=== PATIENT | female | born 1995 | race Hispanic/Latino ===

== ENCOUNTER 2017-05-09 21:11 | Emergency (ER) | payer BC ==
[2017-05-09 21:11] VITALS: BMI 22.6
[2017-05-09] MEDS ORDERED: Sodium Chloride 0.9% 1,000 ML IV ONE (21:26)
--- NOTE | 2017-05-09 21:26 | C.PDOC ---
History Of Present Illness A 21 y/o female who is 16 weeks , c/o vaginal bleeding and cramping for the last hour. Pain is dull, aching and is 4/10 in discomfort. Patient has had an endometriosis in the past. Denies fever, chills, chest pain, SOB, weakness, headache, dizziness, dysuria, or any other complaints. Time Seen by Provider: 05/09/17 21:25 Chief Complaint (Nursing): Female Genitourinary History Per: Patient History/Exam Limitations: no limitations Onset/Duration Of Symptoms: Hrs Current Symptoms Are (Timing): Still Present Severity: Moderate Pain Scale Rating Of: 4 Quality Of Discomfort: Dull, Aching Associated Symptoms: denies: Fever, Chills Recent travel outside of the [place]: No Additional History Per: Patient Abnormal Vaginal Bleeding: Yes : 1 Para: 0 Past Medical History Reviewed: Historical Data, Nursing Documentation, Vital Signs Vital Signs: Last Vital Signs Temp 98.6 F 05/09/17 22:29 Pulse 69 05/09/17 22:29 Resp 20 05/09/17 22:29 BP 99/58 L 05/09/17 22:29 Pulse Ox 97 05/09/17 22:29 - Medical History PMH: Asthma, Depression Denies: Chronic Kidney Disease Surgical History: Tonsillectomy - [facility] Procedures APPLICATION OF SPLINT (07/27/05) OTHER NONOP RESPIRATORY MEASURE (08/22/00) Family History: States: Unknown Family Hx - Social History Hx Tobacco Use: No Hx Alcohol Use: No Hx Substance Use: No Review Of Systems Constitutional: Negative for: Fever, Chills, Weakness Eyes: Negative for: Vision Change ENT: Negative for: Throat Pain Cardiovascular: Negative for: Chest Pain Respiratory: Negative for: Shortness of Breath Genitourinary: Positive for: Vaginal Bleeding, Other (vaginal cramping). Negative for: Dysuria Skin: Negative for: Rash Neurological: Negative for: Headache, Dizziness Physical Exam - Physical Exam Appears: Non-toxic, No Acute Distress Skin: Warm, Dry Head: Normacephalic Eye(s): bilateral: Normal Inspection Oral Mucosa: Moist Neck: Supple Chest: Symmetrical Cardiovascular: Rhythm Regular Respiratory: No Rales, No Rhonchi, No Wheezing Gastrointestinal/Abdominal: Soft, Tenderness (Moderate abdominal discomfort), No Guarding, No Rebound Back: No CVA Tenderness Extremity: Normal ROM Extremity: Bilateral: Atraumatic Pulses: Left Dorsalis Pedis: Normal, Right Dorsalis Pedis: Normal Neurological/Psych: Oriented x3, Normal Speech, Normal Cognition Gait: Steady ED Course And Treatment - Laboratory Results Result Diagrams: 05/09/17 22:01 05/09/17 22:01 O2 Sat by Pulse Oximetry: 99 (RA) Pulse Ox Interpretation: Normal Reevaluation Time: 00:05 Reassessment Condition: Improved Medical Decision Making Medical Decision Making: Upon provider reevaluation patient is feeling better, is medically stable, and requires no further treatment in the ED at this time. Patient will be discharged home . Counseling was provided and all questions were answered regarding diagnosis and need for follow up with dr gordon. There is agreement to discharge plan. Return if symptoms persist or worsen. Disposition Counseled Patient/Family Regarding: Studies Performed, Diagnosis, Need For Followup - Disposition Referrals: Honey REES,Delfino Isabel MD [Medical Doctor] - Disposition: HOME/ ROUTINE Disposition Time: 21:26 Condition: FAIR Additional Instructions: Please return if symptoms recur Instructions: Threatened Miscarriage (ED) Forms: [facility] [employer] (Maldivian) - Clinical Impression Clinical Impression: Threatened - Scribe Statement The provider has reviewed the documentation as recorded by the Scribe Irvin castle All medical record entries made by the Scribe were at my direction and personally dictated by me. I have reviewed the chart and agree that the record accurately reflects my personal performance of the history, physical exam, medical decision making, and the department course for this patient. I have also personally directed, reviewed, and agree with the discharge instructions and disposition.
[2017-05-09] MEDS ORDERED: Sodium Chloride 0.9% 1,000 ML ONE (22:06)
[2017-05-09 22:19] LABS: BASO % 0.4 % (0.0-2.0); EOS # 0.2 K/uL (0.0-0.7); EOS % 1.7 % (0.0-4.0); HEMATOCRIT 36.7 % (34.0-47.0); LYMPH # 2.6 K/uL (1.0-4.3); LYMPH % 27.3 % (20.0-40.0); MEAN CELL VOLUME 93.4 fL (81.0-99.0); MEAN CORPUSCULAR HEMOGLOBIN 31.4 pg (27.0-31.0); MEAN CORPUSCULAR HGB CONC 33.7 g/dL (33.0-37.0); MEAN PLATELET VOLUME 8.5 fL (7.2-11.7); MONO # 0.6 K/uL (0.0-0.8); MONO % 6.5 % (0.0-10.0); NRBC % 0.1 % (0.0-2.0); RED CELL DISTRIBUTION WIDTH 12.7 % (11.5-14.5); WHITE BLOOD COUNT 9.6 K/uL (4.8-10.8)
[2017-05-09 22:24] LABS: CHLORIDE 101 mmol/L (98-107)
[2017-05-09 22:25] LABS: POTASSIUM 4.3 mmol/L (3.6-5.2); SODIUM 136 mmol/L (132-148)
[2017-05-09 22:27] LABS: ALB/GLOB RATIO 1.2 (1.0-2.1); ALKALINE PHOSPHATASE 79 U/L (38-126); ALT/SGPT 45 U/L (9-52); AST/SGOT 37 U/L (14-36); BILIRUBIN,TOTAL 0.4 mg/dL (0.2-1.3); BLOOD UREA NITROGEN 9 mg/dL (7-17); CALCIUM 9.6 mg/dl (8.6-10.4); CARBON DIOXIDE 23 mmol/L (22-30); GFR AFRICAN-AMERICAN > 60; GLUCOSE,RANDOM 75 mg/dL (65-105); TOTAL PROTEIN 7.1 g/dL (6.3-8.3)
[2017-05-09 22:30] VITALS: BP 99/58; PULSE 69; RESP 20; TEMP 98.6
[2017-05-09 23:03] LABS: RBC URINE 2 /hpf (0-3); TRANSITIONAL EPITHIAL < 1 /hpf (0-3); URINE BACTERIA RARE (<OCC); URINE BILIRUBIN NEGATIVE (NEGATIVE); URINE COLOR Yellow (YELLOW); URINE GLUCOSE (UA) NORMAL (Normal); URINE KETONE TRACE mg/dL (NEGATIVE); URINE LEUKOCYTE ESTERASE NEG Leu/uL (Negative); URINE PROTEIN NEGATIVE (NEGATIVE); URINE UROBILINOGEN NORMAL mg/dL (0.2-1.0); WBC URINE 1 /hpf (0-5)
[2017-05-09 23:06] LABS: URINE BLOOD NEGATIVE (NEGATIVE)
[2017-05-10 00:10] VITALS: O2SAT 99
--- NOTE | 2017-05-10 10:54 | US ---
OB , limited ultrasound Comparison: None available. Technique: Real-time ultrasound was performed through the pelvis. Findings: There is a single living fetus in breech presentation. Amniotic fluid volume is within normal limits. Anterior placenta. The inferior margin of the placenta is measured at 1.76 cm from the os. There are no adnexal masses or cysts evident. Cervix length measures approximately 2.6 cm. Measurements and calculations: Fetus has a composite sonographic age of 15 weeks 6 days. This calculation is based on the biparietal diameter, head circumference, abdominal circumference, and femur length. Estimated heart rate 148.2 beats per min. Impression: Single living fetus with a composite sonographic age of 15 weeks 6 days. Estimated heart rate 148.2 beats per min. The inferior margin of the placenta is measured at 1.76 cm from the os. This is considered low lying. The possibility of marginal placenta previa should be considered and recommend follow-up as indicated. The cervix measures approximately 2.6 cm in length. This is less than expected. Consider re- evaluation for possible short cervix. Advise an anomaly screen at 16-18 weeks gestational age. Preliminary impression was provided by virtual [facility].
== END 2017-05-10 00:17 | disposition home or self-care (01) ==
LOC: C.ER 21:11 → SUPCPDRO 21:11 → C.ER 05-10 00:17
DX: O20.0 Threatened abortion (principal); Z3A.15 15 weeks gestation of pregnancy
CPT/HCPCS: 76815; 80053; 81001; 84702; 85025; 85610; 85730; 86850; 86900; 96360; 99285; J7040